=== PATIENT | female | born 1990 | race American Indian/Alaskan Native ===

== ENCOUNTER 2016-05-21 07:52 | Inpatient (IN) | payer BC, MEDICAID, OTHER ==
[2015-04-08 13:00] VITALS: BMI 26.6
[2016-05-21] MEDS ORDERED: Penicillin G 5 Million Unit Vial IVPB ONE ×2 (09:01→09:13)
--- NOTE | 2016-05-21 09:12 | OBHP ---
Datetime: 05/21/2016 09:06 IP Adm Impression: Term, intrauterine ; Active labor IP Admit Plan: Admit to unit; Initiate labor protocol Admit Comment, IP Provider: Chief complaint-uterine contractions HPI 26 y/o at 39/4 wga here wit c/o contractions since 3 am.Patient denies any leaking of flu id.reports active movemnt course uncomplicated as per patient; record reviewed and multiple missed appoint ment seen PMH gastritis PSH ovarain cystectomy, D_C OBGYN HX ;Nvdx1 in 2014; weight 6.15 pounds; TOPX1 Social hx denies tobacco,alcohol or illicit drug use Exam see exam section A/P 26 y/o at 39.4 wga in labor.GBS unknown -admit -see orders -start Ramesh for gbs prophylaxis -Monitor closely Pelvic Type - PN: Adequate Extremities - PN: Normal Abdomen - PN: Normal Back - PN: Normal Lungs - PN: Normal Heart - PN: Normal Neurologic - PN: Normal General - PN: Normal Weight - Estimated: 3400 Presentation-Admit: Vertex Contraction Comments Provider: irregular Gestation - Est Wks by US: 39.4 IP Hx Assessment: The History has been Reviewed and is Current EGA AdmitDate IP: 39.4 Vital Signs Provider: Reviewed IP Chief Complaint: Uterine contractions FHR Category Provider Fetus A: Category I Dilatation, Provider: 4 Effacement, Provider: 80 Station, Provider: -2 Genitourinary Exam: Normal DTRs - PN: Normal
[2016-05-21] MEDS ORDERED: Lactated Ringer's 1,000 ML IV SCH (09:15)
[2016-05-21 09:58] LABS: BASO % 0.4 % (0.0-2.0); EOS # 0.2 K/uL (0.0-0.7); EOS % 2.5 % (0.0-4.0); HEMATOCRIT 29.4 % (34.0-47.0); LYMPH # 1.6 K/uL (1.0-4.3); LYMPH % 21.3 % (20.0-40.0); MEAN CORPUSCULAR HEMOGLOBIN 32.3 pg (27.0-31.0); MEAN CORPUSCULAR HGB CONC 34.6 g/dL (33.0-37.0); MEAN PLATELET VOLUME 9.2 fL (7.2-11.7); MONO # 0.8 K/uL (0.0-0.8); MONO % 10.2 % (0.0-10.0); RED CELL DISTRIBUTION WIDTH 13.3 % (11.5-14.5); WHITE BLOOD COUNT 7.7 K/uL (4.8-10.8)
[2016-05-21] MEDS ORDERED: Bupivacaine 0.125%/FentaNYL 200 ML EPI ONE (09:59)
[2016-05-21 10:02] LABS: MEAN CELL VOLUME 93.5 fL (81.0-99.0); RBC URINE 1 /hpf (0-3); URINE BILIRUBIN NEGATIVE (NEGATIVE); URINE BLOOD NEGATIVE (NEGATIVE); URINE COLOR Yellow (YELLOW); URINE GLUCOSE (UA) NORMAL (Normal); URINE KETONE NEGATIVE (NEGATIVE); URINE LEUKOCYTE ESTERASE NEG Leu/uL (Negative); URINE PROTEIN NEGATIVE (NEGATIVE); URINE UROBILINOGEN NORMAL mg/dL (0.2-1.0); WBC URINE 1 /hpf (0-5)
[2016-05-21 10:16] LABS: CHLORIDE 105 mmol/L (98-107); POTASSIUM 3.2 mmol/L (3.6-5.2); SODIUM 136 mmol/L (132-148)
[2016-05-21 10:18] LABS: BILIRUBIN,TOTAL 0.8 mg/dL (0.2-1.3); GFR AFRICAN-AMERICAN > 60
[2016-05-21 10:19] LABS: ALKALINE PHOSPHATASE 123 U/L (38-126); ALT/SGPT 49 U/L (9-52); AST/SGOT 34 U/L (14-36); BLOOD UREA NITROGEN 9 mg/dL (7-17); CALCIUM 8.2 mg/dl (8.6-10.4); CARBON DIOXIDE 20 mmol/L (22-30); GLUCOSE,RANDOM 67 mg/dL (65-105); TOTAL PROTEIN 6.4 g/dL (6.3-8.3)
[2016-05-21] MEDS ORDERED: Benzocaine/Menthol 20%-0.5% Topical Spray (60 ml) TOP PRN (14:42)
[2016-05-21] MEDS ORDERED: Oxycodone/Acetaminophen 5/325 mg Tab PO PRN (14:42)
--- NOTE | 2016-05-21 14:42 | OBDS ---
DELIVERY PERSONNEL Delivery Doctor: Heavenly Escobar MD Anesthesiologist: DR DOSS MATERNAL INFORMATION Delivery Anesthesia: Epidural Estimated Blood Loss (ml): 300 Provider Comments: of a female .Nuchalx1 around neck and loose and reduced on perineum.Bod y and shoulders delivered without difficulty.Cord clamped and cut. [facility].c ord blood collected.Placenta spontaneously delivered.perienum intact.fundus firm patient stable LABOR SUMMARY EDC: 05/24/2016 00:00 No. Babies in Womb: 1 LABOR INFORMATION Onset of Labor: 05/21/2016 03:00 Group B Beta Strep: Negative MEMBRANES Rupture of Membranes: 05/21/2016 03:00 VAGINAL DELIVERY Episiotomy: None Laceration Extension: N/A Laceration Type: None Laceration Repair: Not Applicable Sponge Count Correct: Yes; Vaginal Sweep Performed Sharps Count Correct: N/A PRESENTATION/POSITION BABY A Presentation: Cephalic INFANT INFORMATION BABY A Gestational Age at Delivery: 39.4 Gestational Status: Term Outcome : Liveborn Condition : Stable CORD INFORMATION BABY A Cord Blood Taken: Yes Suction: Mouth; Nose
[2016-05-21] MEDS ORDERED: Oxytocin 30 UNIT 1,000 ML IV SCH (15:30)
[2016-05-21 20:35] LABS: BASO % 0.5 % (0.0-2.0); EOS # 0.1 K/uL (0.0-0.7); EOS % 0.7 % (0.0-4.0); HEMATOCRIT 30.3 % (34.0-47.0); LYMPH # 1.2 K/uL (1.0-4.3); LYMPH % 12.4 % (20.0-40.0); MEAN CELL VOLUME 92.6 fL (81.0-99.0); MEAN CORPUSCULAR HGB CONC 33.4 g/dL (33.0-37.0); MEAN PLATELET VOLUME 9.2 fL (7.2-11.7); MONO # 0.8 K/uL (0.0-0.8); MONO % 8.5 % (0.0-10.0); WHITE BLOOD COUNT 9.8 K/uL (4.8-10.8)
[2016-05-22 07:23] LABS: BASO % 0.4 % (0.0-2.0); EOS # 0.3 K/uL (0.0-0.7); EOS % 2.6 % (0.0-4.0); HEMATOCRIT 27.6 % (34.0-47.0); LYMPH # 2.3 K/uL (1.0-4.3); MEAN CELL VOLUME 92.4 fL (81.0-99.0); MEAN CORPUSCULAR HEMOGLOBIN 31.1 pg (27.0-31.0); MEAN CORPUSCULAR HGB CONC 33.7 g/dL (33.0-37.0); MONO # 1.1 K/uL (0.0-0.8); MONO % 9.9 % (0.0-10.0); RED CELL DISTRIBUTION WIDTH 12.9 % (11.5-14.5); WHITE BLOOD COUNT 10.9 K/uL (4.8-10.8)
--- NOTE | 2016-05-22 07:35 | OBPPN ---
Datetime: 05/22/2016 07:33 PP Pain Prov: Within normal limits PP Nausea Prov: Denies PP Flatus Prov: Yes PP Abdomen/Uterus Prov: Normal PP Lochia Prov: Normal PP Extremities Prov: Normal PP Comments Phys Exam Prov: fudus below umb ext mild edema,no calf ten PP Impression Prov: Normal progression PP Plan Prov: Continue present management PP Progress Note Prov: pt was seen at bed side, pain under control,no n/v, tolerating deit,voiding,m in ocha, flatuas+ ppd#1 s/p cbc reg deit encourage ambulation cont pp care Vital Signs Provider PP: Reviewed
[2016-05-23 10:22] VITALS: BP 121/66; PULSE 60; RESP 18; TEMP 97.5; O2SAT 97
--- NOTE | 2016-05-23 19:23 | OBPPN ---
Datetime: 05/23/2016 19:15 PP Pain Prov: Within normal limits PP Nausea Prov: Denies PP Flatus Prov: Yes PP BM Prov: No PP Breasts Prov: Normal PP Heart Prov: Normal PP Lungs Prov: Normal PP Abdomen/Uterus Prov: Normal PP Lochia Prov: Normal PP Vulva/Perineum Prov: Normal PP CVA Tenderness Prov: Normal PP Extremities Prov: Normal PP C/S Incision Prov: Not Applicable PP Progress Prov: Normal PP Comments Phys Exam Prov: Skin: warm, dry, intact HEENT: full ROM Breasts: large, symmetric, no masses or cracked nipples Lungs: CTA bilaterally Cardiac: RRR, normal S1, S2 Abdomen: Obese. Soft. Nondistended. Fundus firm, mobile, non tender at umbilicus. Mild to moderate lochia rubra : no discharge Extremiteis: no calf tenderness, cyanosis or edema All other systems reviewed and are negative PP Impression Prov: Normal progression PP Plan Prov: Discharge PP Progress Note Prov: Patient seen and evaluated earlier in the day: received in room 456 in good s pirits. Breastfeedingprimarily; some bottle. Voiding without difficulty. Denies headaches, lightheade dness, chest pain or palpitations P.E.: as above. WD in NAD. Awake, alert, oriented to time, person and place. Pleasant and cooperat blaine - PPD#1 H/H 9.3/27.6 Assessment: PPD#2 26 yo P2012, S/P . Afebrile, vital signs stable. Anemia - asymptomatic and he modynamically stable. Interested in IUD for contraception. Clinically stable. Plan: 1) Discharge home 2) See full discharge instructions Vital Signs Provider PP: Reviewed; Within Normal Limits
--- NOTE | 2016-05-23 19:25 | OBDCSUM ---
Datetime: 05/23/2016 11:22 Discharged to, Provider: Home Follow up at, Provider: [facility] Disch Instr Activity: Normal activity; May be up to bathroom; May be up for meals; May Shower Disch Instr Diet: Regular Discharge Diagnosis, Provider: Term Delivered Discharge Time: 05/23/2016 11:23 Follow up in weeks, Provider: 6 weeks Disch Referrals: None Contraception discussed, Prov: Yes Disch Activity Restrictions: No lifting; No driving; Minimize walking; Minimize stair-climbing; No s exual activity; Nothing in vagina - [place], tampons, douche Discharge Diagnosis Prov Other: Anemia Contraception counseling Contraception after Delivery: IUD
== END 2016-05-23 14:00 | disposition home or self-care (01) | DRG 373 ==
LOC: C.EROB 07:52 → C.4D 09:01 → C.4M 19:08
PROVIDERS: ADMIT Student in an Organized Health Care Education/Training Program; ATTEND Student in an Organized Health Care Education/Training Program
PROC: 10E0XZZ Delivery of Products of Conception, External Approach (ICD-10-PCS; principal; 2016-05-21)
DX: O69.81X0 Labor and delivery complicated by cord around neck, without compression, not applicable or unspecified (principal); O99.02 Anemia complicating childbirth; Z3A.39 39 weeks gestation of pregnancy; Z37.0 Single live birth

== ENCOUNTER 2016-06-22 04:51 | Emergency (ER) | payer OTHER ==
[2016-06-22 04:51] VITALS: BMI 26.6
--- NOTE | 2016-06-22 05:34 | C.PDOC ---
History Of Present Illness 26 y/o female presents to ED with complaint of intermittent suprapubic pain for 2 days associated with dysuria. Patient reports radiation of pain to left flank area and subjective fever today. Patient notes she is 4 weeks post-. Denies nausea, vomiting, diarrhea, hematuria, or vaginal bleeding. Time Seen by Provider: 06/22/16 05:00 Chief Complaint (Nursing): Female Genitourinary History Per: Patient History/Exam Limitations: no limitations Onset/Duration Of Symptoms: Days Current Symptoms Are (Timing): Still Present Associated Symptoms: Fever (subjective), Urinary Symptoms (dysuria ). denies: Nausea, Vomiting, Diarrhea, Back Pain Recent travel outside of the [place]: No Abnormal Vaginal Bleeding: No Past Medical History Reviewed: Historical Data, Nursing Documentation, Vital Signs Vital Signs: Last Vital Signs Temp 99.8 F H 06/22/16 05:00 Pulse 100 H 06/22/16 05:00 Resp 18 06/22/16 05:00 BP 140/87 06/22/16 05:00 Pulse Ox 99 06/22/16 06:01 - Medical History PMH: Gastritis - [facility] Procedures DELIVERY OF PRODUCTS OF CONCEPTION, EXTERNAL APPROACH (05/21/16) REPAIR FEMALE PERINEUM, EXTERNAL APPROACH (02/27/15) Family History: States: Unknown Family Hx - Social History Hx Tobacco Use: No Hx Alcohol Use: No Hx Substance Use: No - Immunization History Hx Tetanus Toxoid Vaccination: Yes Hx Influenza Vaccination: Yes Hx Pneumococcal Vaccination: Yes Review Of Systems Except As Marked, All Systems Reviewed And Found Negative. Constitutional: Positive for: Fever. Negative for: Chills Respiratory: Negative for: Cough Gastrointestinal: Positive for: Abdominal Pain. Negative for: Nausea, Vomiting Genitourinary: Positive for: Dysuria. Negative for: Hematuria Skin: Negative for: Rash Physical Exam - Physical Exam Appears: Non-toxic, No Acute Distress Skin: Normal Color, Warm, Dry Head: Atraumatic, Normacephalic Chest: Symmetrical, No Tenderness Cardiovascular: Rhythm Regular, No Murmur Respiratory: Normal Breath Sounds, No Rales, No Rhonchi, No Wheezing Gastrointestinal/Abdominal: Soft, No Tenderness, No Distention, No Guarding, No Rebound Back: Normal Inspection, No CVA Tenderness Extremity: Normal ROM, Capillary Refill (< 2 sec. ) Neurological/Psych: Oriented x3, Normal Speech, Normal Cognition ED Course And Treatment O2 Sat by Pulse Oximetry: 99 (RA) Pulse Ox Interpretation: Normal Progress Note: UA reviewed - consistent with UTI. Pt will be given Rx for macrobid and motrin for pain Disposition Counseled Patient/Family Regarding: Diagnosis, Need For Followup, Rx Given - [facility] Disposition: HOME/ ROUTINE Disposition Time: 05:55 Condition: STABLE Additional Instructions: Please follow up with PMD Take meds as directed Return to ER if worse Prescriptions: Nitrofurantoin Macrocrystals [Macrobid] 1 cap PO BID #14 cap Ibuprofen [Motrin] 600 mg PO Q6H #30 tab Phenazopyridine HCl [Pyridium] 100 mg PO TID #6 tab Instructions: Urinary Tract Infection in Women (ED) - Clinical Impression Clinical Impression: UTI (urinary tract infection) - PA / MANUFACTURERS AGENT / Resident Statement MD/DO has reviewed & agrees with the documentation as recorded. - Scribe Statement The provider has reviewed the documentation as recorded by the Sarah Bhagat Provider Scribe Attestation: All medical record entries made by the Sarah were at my direction and personally dictated by me. I have reviewed the chart and agree that the record accurately reflects my personal performance of the history, physical exam, medical decision making, and the department course for this patient. I have also personally directed, reviewed, and agree with the discharge instructions and disposition.
[2016-06-22 05:37] LABS: RBC URINE 23 /hpf (0-3); URINE BACTERIA FEW (<OCC); URINE BILIRUBIN NEGATIVE (NEGATIVE); URINE BLOOD 2+ (NEGATIVE); URINE COLOR Yellow (YELLOW); URINE GLUCOSE (UA) NORMAL (Normal); URINE KETONE NEGATIVE (NEGATIVE); URINE LEUKOCYTE ESTERASE 2+ Leu/uL (Negative); URINE PROTEIN NEGATIVE (NEGATIVE); URINE UROBILINOGEN NORMAL mg/dL (0.2-1.0); WBC URINE 146 /hpf (0-5)
[2016-06-22 06:14] VITALS: BP 139/83; PULSE 88; RESP 20; TEMP 98.4; O2SAT 98
== END 2016-06-22 06:15 | disposition home or self-care (01) ==
LOC: C.ER 04:51
DX: N39.0 Urinary tract infection, site not specified (principal)